=== PATIENT | female | born 1935 | race Caucasian/White ===

== ENCOUNTER 2019-11-07 12:18 | Inpatient (IN) | payer MEDICARE, BC, SELFPAY ==
[2019-11-07] VITALS (8 sets, daily range): BP systolic 147–173; BP diastolic 62–88; PULSE 54–87; RESP 16–20; TEMP 36.2–36.8; O2SAT 87–98; BMI 30.8
--- NOTE | ~2019-11-07 | XR_ITS ---
XR chest 1V portable DATE: 11/07/2019 13:06 INDICATION: Dizziness. Recent cardiac catheterization TECHNIQUE: Portable upright AP chest on 11/07/2019 at 1304 hours COMPARISON: None FINDINGS: Globular enlarged cardiac silhouette suggesting cardiomyopathy or less likely pericardial e ffusion. There is pulmonary vascular congestion and redistribution. There are extensive patchy infilt rates throughout the right lung and to a lesser extent in the left perihilar area, likely due to pulm onary edema. Pneumonia and aspiration are not excluded. Minimal blunting of the right costophrenic angle may indicate slight right pleural effusion. Aortic arch calcification. Diffuse osteopenia. There is osteoarthritic change at the glenohumeral joints, especially severe on t he left as well as degenerative change at the acromioclavicular joints. Dextro scoliosis and degenerative change of the thoracic spine. IMPRESSION: Enlarged cardiac silhouette consistent with cardiomyopathy and/or pericardial effusion Probably vascular congestion and bilateral pulmonary infiltrates, right greater than left, suggesting pulmonary edema. Pneumonia and aspiration are not excluded Reviewed, dictated and finalized at location A. BAKER IMPRESSION: Enlarged cardiac silhouette consistent with cardiomyopathy and/or p ericardial effusion Probably vascular congestion and bilateral pulmonary infiltrates, right greater than left, suggesting pulmonary edema. Pneumonia and aspiration are not exclud ed
--- NOTE | ~2019-11-07 | MR_ITS ---
EXAMINATION: MR brain/brain stem wo con EXAM DATE: 11/08/2019 10:16 INDICATION: Slurred speech. Cardiac catheterization. TECHNIQUE: Magnetic resonance imaging (MRI) of the brain/brain stem obtained without contrast. Sagitt al T1, axial diffusion, gradient echo (T2*), T1, T2, FLAIR sequences obtained. Correlation is made t o head CT same day. FINDINGS: There are no areas of restricted diffusion to suggest acute infarction. There is no acute hemorrhage seen on the T2*, a hemosiderin sensitive sequence. No intraparenchymal brain mass lesion. There is moderate periventricular and subcortical T2/FLAIR signal hyperintensity, nonspecific but pr obably related to small vessel ischemic disease (microangiopathy). There is moderate prominence of the sulci and ventricles related to cerebral atrophy. There are no extra-axial collections. Flow v oids are seen in the cerebral arteries on the T2-weighted sequences consistent with their expected pa tency. Patient has had bilateral ocular lens surgery. Soft tissue is unremarkable. There is right mastoid effusion. IMPRESSION: 1. No acute intracranial findings. 2. Chronic age related findings. Reviewed, dictated and finalized at location A. ERTY MANAGEMENT ACCOUNTANT
--- NOTE | ~2019-11-07 | CT_ITS ---
EXAMINATION: CT brain wo con DATE: 11/07/2019 13:11 INDICATION: Confusion, slurred speech. Cardiac catheterization yesterday. TECHNIQUE: Computed tomography (CT) of the head was performed without intravenous contrast. The mA wa s adjusted according to patient size. Iterative reconstruction technique was employed. Exam dose: 60 5.33 mGy-cm total exam DLP. COMPARISON: None FINDINGS: There is prominent bilateral vertebral artery and carotid siphon and supraclinoid internal carotid artery calcifications. There is nonspecific diminished attenuation of the cerebral white juan er, likely due to chronic small vessel ischemic changes. No intracranial mass lesion or hemorrhage, midline shift or mass effect or recent cerebrovascular acc ident is evident. CT is not sensitive for detection of hyperacute CVA. There are bilateral basal ganglia calcifications. There is moderate cerebral and cerebellar volume loss consistent with age. No orbital mass lesion is evident. The mastoid air cells and included paranasal sinuses are unremarkable. No fracture or bone destructio n of the cranial vault. IMPRESSION: Cerebral atherosclerosis and chronic small vessel ischemic changes of the cerebral white matter Reviewed, dictated and finalized at Location A. Reviewed, dictated and finalized at location A. ENTION PLANNER
--- NOTE | ~2019-11-07 | US_ITS ---
EXAMINATION: US carotid duplex BI EXAM DATE: 11/09/2019 11:11 INDICATION: Slurred speech. Transient ischemic attack. TECHNIQUE: Grayscale, color and pulsed Doppler images of the cervical carotid arteries were obtained . The degree of vessel stenosis is placed in one of the following categories: normal, <50% stenosis, 50-69% stenosis, >=70% stenosis but less than near-occlusion, near-occlusion, or occlusion. Note that percent stenosis relative to normal distal artery lumen diameter is indirectly measured from velocit y measurements as described by Fredy, et al. Radiology 2003; 229:340-346. There is no prior study fo r comparison. FINDINGS: RIGHT SIDE: Right common carotid artery peak systolic velocity (PSV in cm/s): 92 Right bulb/internal carotid artery peak systolic velocity (PSV in cm/s): 83 Right internal carotid artery end diastolic velocity (EDV in cm/s): 19 Right ICA/CCA peak systolic ratio: 0.9 Right external carotid artery peak systolic velocity (PSV in cm/s): 1.0 Right vertebral artery antegrade flow: yes There is minimal carotid bulb plaque. Velocity and Doppler waveforms in the common and internal carotid arteries is normal. LEFT SIDE: Left common carotid artery peak systolic velocity (PSV in cm/s): 88 Left bulb/internal carotid artery peak systolic velocity (PSV in cm/s): 75 Left internal carotid artery end diastolic velocity (EDV in cm/s): 27 Left ICA/CCA peak systolic ratio: 0.9 Left external carotid artery peak systolic velocity (PSV in cm/s): 1.5 Left vertebral artery antegrade flow: yes There is minimal common carotid artery plaque. Velocity and Doppler waveforms in the common and internal carotid arteries is normal. IMPRESSION: 1. Less than 50 percent stenosis in the right internal carotid artery. 2. Less than 50 percent stenosis in the left internal carotid artery. Reviewed, dictated and finalized at location B. ONAL SECURITY SPECIALIST
--- NOTE | 2019-11-07 12:31 | ED.NEUROSD ---
HPI - Neuro Symptoms/Deficit General Chief Complaint: Neuro Symptoms/Deficit Stated Complaint: confusion/slurred speech after heart cath Time Seen by Provider: 11/07/19 12:25 Source: patient and family (Daughter) Mode of arrival: ambulatory Limitations: no limitations History of Present Illness HPI Narrative: The pt is an 83 y/o female who presents to the ED c/o neurological deficits onset today. Pt states that she had a cardiac catheterization one day ago at [facility]. She states that purpose of the catheterization was to study pressures in the heart. Pt's daughter notes that the pt has a PMHx of Afib, pulmonary HTN, and aortic regurgitation. She states that today, when she awoke, she was talking about her son and family being at her house despite them not actually being there. Her daughter states that the pt seemed to be confused when she went to the pt's house as well. She also states that the pt's speech was off. Pt reports dry mouth and dizziness when going from sitting to standing, but denies CP and weakness. Pt's daughter states that she previously fractured a wrist. Pt is on Eliquis. Location: speech (Speech was off per pt's daughter) and altered Context: other (Cardiac catheterization one day ago) On Anticoagulants: Yes Associated symptoms: other (Dizziness when going from sitting to standing, dry mouth) Related Data Home Medications Medication Instructions Recorded Confirmed Calcium 500 + D 11/07/19 acetaminophen 11/07/19 amlodipine 11/07/19 apixaban [Eliquis] mg 11/07/19 colesevelam mg 11/07/19 digoxin 11/07/19 furosemide 11/07/19 letrozole mg 11/07/19 lisinopril 11/07/19 loperamide [Anti-Diarrheal 11/07/19 (loperamide)] metformin mg PO 11/07/19 pantoprazole PO 11/07/19 rosuvastatin mg 11/07/19 sitagliptin [Januvia] mg 11/07/19 sotalol 11/07/19 Allergies Allergy/AdvReac Type Severity Reaction Status Date / Time monosodium glutamate AdvReac Diarrhea Verified 11/07/19 17:46 Review of Systems Review of Systems: All systems reviewed & are unremarkable except as noted in HPI and below ENT: Reports dry mouth Cardiovascular: Cardiovascular: Denies chest pain Neurologic: Reports Abnormal speech present (Speech was off per pt's daughter), Reports confusion, Reports dizziness (When going from sitting to standing) and Denies weakness PMFSH Past Medical History Medical History (Updated 11/07/19 @ 19:29 by Isrrael Willson MD) Afib Aortic regurgitation CAD (coronary artery disease) Diabetes HLD (hyperlipidemia) HTN (hypertension) Pulmonary HTN Wrist fracture Surgical History Surgical History (Updated 11/07/19 @ 12:37 by Martínez Roman) H/O cardiac catheterization Family History Family History (Updated 11/07/19 @ 18:55 by Melina Iyer, GILMAR) Mother Cancer Father Diabetes mellitus Sibling Diabetes mellitus Social History Social History (Updated 11/07/19 @ 12:38 by Martínez Roman) Smoking status: Never smoker Alcohol intake: never Substance use: never Gender identity (if verbalized by the patient): Female Spiritual care concerns: No Agree to blood products: Yes Exam Narrative: Exam Narrative: GENERAL: Chronically ill-appearing, well-nourished, and in no acute distress. HEAD: Normocephalic, atraumatic. ENT: Mucous membranes moist. No pharyngeal erythema or tonsillar exudate. NECK: Supple. Wound dressing right neck from heart cath. CHEST: Diminished lung sounds on the right side with basilar crackles. No respiratory distress. HEART: Bradycardic and irregular regular. Normal peripheral pulses. ABDOMEN: Soft, nontender, nondistended. EXTREMITIES: Normal range of motion. Nonpitting lower extremity edema. SKIN: Warm, dry, no rash. NEURO: No focal deficits. No upper or lower extremity drift. Cranial nerves II through XII intact. Clear speech. Alert and oriented x3. Course Consultations Consultation #1: Discussed case with
--- NOTE | 2019-11-07 12:55 | ECG_ITS ---
Measurements Intervals [place] Rate: 56 P: IA: 0 QRS: 144 QRSD: 144 T: -29 QT: 462 QTc: 447 Interpretive Statements ATRIAL FIBRILLATION WITH SLOW VENTRICULAR RESPONSE RIGHT AXIS DEVIATION RIGHT BUNDLE BRANCH BLOCK MINIMAL ST ELEVATION IN HIGH LATERAL LEADS ST-T WAVE ABNORMALITY ANTEROLAT/INF LEADS- CONSIDER ISCHEMIA ABNORMAL ECG Electronically Signed On 11-07-2019 17:53:59 BULL DRIVER by Jeancarlos Omer D.O.
[2019-11-07 13:06] LABS: Basophils Percent Auto 0.3 % (0.2-1.2); Eosinophils Percent Auto 0.1 % (0-4.4); Hematocrit 29.6 % (37.0-47.0); Hemoglobin 8.2 g/dL (12.0-15.0); Immature Granulocyte Absolute 0.07 K/mm3 (0.00-0.031); Immature Granulocyte Percent A 0.5 % (0-0.5); Lymphocytes Percent Auto 5.9 % (18.3-44.2); Mean Corpuscular HGB Conc 27.7 g/dl (32-36); Mean Corpuscular Hemoglobin 21.9 pg (26-34); Mean Corpuscular Volume 78.9 fl (80-100); Mean Platelet Volume 11.1 fl (7.4-10.4); Monocytes Absolute Auto 0.8 K/mm3 (0.1-0.6); Monocytes Percent Auto 5.3 % (2.6-8.5); Neutrophils Absolute Auto 13.4 K/mm3 (1.3-6.7); Neutrophils Percent Auto 87.9 % (45.5-73.1); Platelet Count Result 227 k/mm3 (150-375); Red Blood Count 3.75 M/mm3 (4.2-5.4); Red Cell Distribution Width 21.5 % (11.5-14.5); White Blood Count 15.2 K/mm3 (4.5-10.0)
[2019-11-07 13:18] LABS: INR 1.2; Prothrombin Time 14.9 Seconds (11.1-14.7)
[2019-11-07 13:19] LABS: Blood Urea Nitrogen 22 mg/dL (7-17); Carbon Dioxide 28 mmol/L (22-30); Chloride 100 mmol/L (98-107); Estimated Glomerular Filt Rate > 60; Glucose 185 mg/dL (65-105); Partial Thromboplastin Time 39.4 SECONDS (22.3-36.8); Potassium 3.6 mmol/L (3.4-5.0); Sodium 136 mmol/L (137-145)
[2019-11-07 13:21] LABS: Hypochromasia 1+ (NORMAL); Ovalocytes 1+ (NORMAL); Platelet Estimate Adequate (Adequate); Stomatocytes 2+ (NORMAL)
[2019-11-07 13:30] LABS: Troponin I < 0.012 ng/mL (0.000-0.034)
[2019-11-07 16:02] LABS: Add Urine Microscopic? YES; Appearance Urine Clear (Clear); Bacteria Urine Trace /hpf; Bilirubin Urine Negative (Negative); Blood Urine Negative (Negative); Color Urine Yellow (Yellow); Glucose Urine UA 1+ mg/dL (Negative); Ketones Urine Negative (Negative); Leukocyte Esterase Ur Negative LEU/UL (Negative); Mucus Urine Rare /lpf; Nitrate Urine Negative (Negative); Protein Urine 1+ mg/dL (Negative); Specific Grav Ur 1.012 (1.001-1.035); Squamous Epithelial Cell Urine Few /hpf (Few); Urobilinogen Urine Negative mg/dL (<2.0); WBC Urine 0-3 /hpf
[2019-11-07 17:48] LABS: NT Pro B Type Natriuretic Pept 3330 PG/ML (5-100)
--- NOTE | 2019-11-07 18:47 | ADMGEN ---
This patient, Milagro Mohr, was admitted to Medical Room 341-01. Patient/family oriented to hospital policies and general routines including ID bracelet, bed and alarms, visiting hours, pain management, procedures, bathroom and other care routines, personal items, smoking policy, room service/diet, and visiting hours. Valuables list has been completed. Information on how to activate the Rapid Response Team has been discussed. Patient/Family are encouraged to report perceived risks to care and to ask questions if they do not understand what they are told or what they should do.
[2019-11-07] MEDS: ACETAMINOPHEN 325 MG TABLET 650 MG PO (19:56)
[2019-11-08] VITALS (15 sets, daily range): BP systolic 122–149; BP diastolic 42–63; PULSE 48–87; RESP 14–18; TEMP 36.6–37.2; O2SAT 91–97
[2019-11-08] MEDS: ACETAMINOPHEN 325 MG TABLET 650 MG PO (01:42)
--- NOTE | 2019-11-08 05:13 | PM.IMHP ---
H&P: HPI History of Present Illness Chief complaint: Confusion/slurred speech Narrative: Date and time of patient contact: 11/08/2019 at 4:50 a.m. Milagro Mohr is a 83 year old female with a past medical history of chronic hypoxic respiratory failure due to pulmonary hypertension, chronic atrial fibrillation, aortic regurgitation, and type 2 diabetes mellitus who presented to the ER from home due to confusion and slurred speech. The patient had an outpatient right-sided cardiac catheterization on 11/06/2019 to evaluate her pulmonary hypertension. Evidently when the patient woke up on the she was talking about her son and family being at her house despite them not actually being there. When her daughter went to the patient's house to check on her she felt her mom was confused. She felt that her mom speech was off. The patient reported a dry mouth and dizziness when changing positions to the ER staff. She denied any cough or congestion. She has not been having any chest pain or weakness. The patient reports she usually has bowel movement every day. She denies any fevers or chills. She has not been having any nausea or vomiting and reports a normal appetite. Patient's support services coordinator is Dr. Alicia Pelayo at [facility] Review of systems was somewhat limited as the patient would only answer questions in 1-2 word responses. Review of Systems Review of Systems: Narrative: Except as documented in the HPI, all other systems were reviewed and are negative. [facility] Past Medical History Medical History (Updated 11/08/19 @ 05:32 by Sherri Cui DO) Aortic regurgitation Atrial fibrillation CAD (coronary artery disease) Chronic anemia Chronic respiratory failure with hypoxia, on home O2 therapy Diabetes HLD (hyperlipidemia) HTN (hypertension) Pulmonary HTN Wrist fracture Surgical History Surgical History (Updated 11/08/19 @ 05:10 by Sherri Cui DO) History of right heart catheterization For evaluation of pulmonary hypertension November 06, 2019 Family History Family History (Updated 11/07/19 @ 18:55 by Melina Iyer RN) Mother Cancer Father Diabetes mellitus Sibling Diabetes mellitus Social History Social History (Updated 11/08/19 @ 05:22 by Sherri Cui DO) Social History: The patient is and lives in her own home. She is a lifelong nonsmoker. She denies any significant alcohol use or illicit substance use. She is a retired administrative and program specialist. Code status: Full code per EMR Smoking status: Never smoker Alcohol intake: never Substance use: never Gender identity (if verbalized by the patient): Female Spiritual care concerns: No Agree to blood products: Yes Meds Home Medications and Allergies Home Medications Medication Instructions Recorded Confirmed Type Calcium 500 + D 500 mg PO DAILY 11/07/19 11/07/19 History acetaminophen 1,000 mg PO TID 11/07/19 11/07/19 History amlodipine 5 mg PO DAILY 11/07/19 11/07/19 History apixaban [Eliquis] 5 mg PO BID 11/07/19 11/07/19 History colesevelam 1,875 mg PO DAILY 11/07/19 11/07/19 History digoxin 250 mcg PO DAILY 11/07/19 11/07/19 History furosemide 40 mg PO DAILY 11/07/19 11/07/19 History gabapentin 600 mg PO HS 11/07/19 11/07/19 History letrozole 2.5 mg PO DAILY 11/07/19 11/07/19 History lisinopril 40 mg PO BID 11/07/19 11/07/19 History loperamide [Anti-Diarrheal 2 mg PO PRN 11/07/19 11/07/19 History (loperamide)] metformin 1,000 mg PO BID 11/07/19 11/07/19 History pantoprazole 40 mg PO BID 11/07/19 11/07/19 History rosuvastatin 5 mg PO QMWF 11/07/19 11/07/19 History sitagliptin [Januvia] 100 mg PO HS 11/07/19 11/07/19 History sotalol 120 mg PO BID 11/07/19 11/07/19 History Allergies Allergy/AdvReac Type Severity Reaction Status Date / Time monosodium glutamate AdvReac Diarrhea Verified 11/07/19 17:46 Vital Signs Vital Signs - 24 hr 11/07/19 12:28 11/07/19 14:55 11/07/19 1
[2019-11-08] MEDS: metroNIDAZOLE 500 MG/ISO 100ML 500 MG/100 ML BAG 100 MG IVPB ×4 (05:37→23:36)
[2019-11-08 06:09] LABS: Basophils Percent Auto 0.2 % (0.2-1.2); Eosinophils Absolute Auto 0.2 K/mm3 (0-0.3); Eosinophils Percent Auto 2.1 % (0-4.4); Hematocrit 26.9 % (37.0-47.0); Hemoglobin 7.3 g/dL (12.0-15.0); Immature Granulocyte Absolute 0.04 K/mm3 (0.00-0.031); Immature Granulocyte Percent A 0.5 % (0-0.5); Lymphocytes Absolute Auto 1.04 K/mm3 (0.9-3.2); Lymphocytes Percent Auto 12.2 % (18.3-44.2); Mean Corpuscular HGB Conc 27.1 g/dl (32-36); Mean Corpuscular Hemoglobin 21.7 pg (26-34); Mean Corpuscular Volume 79.8 fl (80-100); Mean Platelet Volume 11.8 fl (7.4-10.4); Monocytes Absolute Auto 0.7 K/mm3 (0.1-0.6); Monocytes Percent Auto 7.7 % (2.6-8.5); Neutrophils Absolute Auto 6.6 K/mm3 (1.3-6.7); Neutrophils Percent Auto 77.3 % (45.5-73.1); Platelet Count Result 170 k/mm3 (150-375); Red Blood Count 3.37 M/mm3 (4.2-5.4); Red Cell Distribution Width 21.7 % (11.5-14.5); White Blood Count 8.5 K/mm3 (4.5-10.0)
[2019-11-08 06:32] LABS: Blood Urea Nitrogen 19 mg/dL (7-17); Calcium 8.6 mg/dL (8.4-10.2); Carbon Dioxide 29 mmol/L (22-30); Chloride 98 mmol/L (98-107); Estimated CRCL calculation 64 ml/min; Estimated Glomerular Filt Rate > 60; Glucose 132 mg/dL (65-105); Magnesium 1.8 mg/dL (1.6-2.3); Potassium 3.5 mmol/L (3.4-5.0); Sodium 134 mmol/L (137-145)
[2019-11-08 07:18] LABS: Hypochromasia 1+ (NORMAL); Ovalocytes 1+ (NORMAL); Platelet Estimate Adequate (Adequate); Poikilocytosis 1+ (NORMAL)
[2019-11-08 08:58] LABS: Troponin I 0.015 ng/mL (0.000-0.034)
[2019-11-08] MEDS: APIXABAN 5 MG TABLET PO ×2 (09:13→17:01)
[2019-11-08] MEDS: SOTALOL HCL 40 MG TABLET 120 MG PO ×2 (09:14→16:58)
[2019-11-08] MEDS: COLESEVELAM 625 MG TABLET 1875 MG PO (09:14)
[2019-11-08] MEDS: LETROZOLE (*CHEMO) 2.5 MG TABLET PO (09:15)
[2019-11-08] MEDS: lisinopriL 20 MG TABLET 40 MG PO ×2 (09:15→17:00)
[2019-11-08] MEDS: DIGOXIN 250 MCG TABLET PO (09:15)
[2019-11-08] MEDS: metFORMIN HCL XR 500 MG TAB.SR.24H 1000 MG PO ×2 (09:16→17:00)
[2019-11-08] MEDS: AMLODIPINE BESYLATE 5 MG TABLET PO (09:16)
[2019-11-08] MEDS: PANTOPRAZOLE 40 MG TABLET PO ×2 (09:16→16:59)
[2019-11-08] MEDS: ACETAMINOPHEN 500 MG TABLET 1000 MG PO (09:42)
[2019-11-08] MEDS: FUROSEMIDE 40 MG TABLET PO (10:31)
--- NOTE | 2019-11-08 13:26 | PM.IMPN ---
Progress Note: A&P Assessment and Plan (1) Slurred speech: Code(s): R47.81 - Slurred speech Status: Acute Assessment and Plan: -----patient had a brief episode of confusion was slurred speech that occurred the night after her procedure. The patient is back to baseline at this time. I am concerned for a TIA at this point since she had to hold her Eliquis prior to the procedure. Is now back on the Eliquis. MRI is pending but the patient has no neurological deficits or any recurring symptoms so it is likely just a TIA. Will know for sure once the MRI is read. Likely discharge tomorrow if not having any recurring symptoms. (2) Aspiration pneumonia: Qualifiers: Aspiration pneumonia type: unspecified Laterality: right Lung location: unspecified part of lung Qualified Code(s): J69.0 - Pneumonitis due to inhalation of food and vomit Code(s): J69.0 - Pneumonitis due to inhalation of food and vomit Status: Acute Assessment and Plan: ------continue treatment for aspiration pneumonia although CHF should be in the differential. Continue Rocephin and Flagyl. (3) Delirium: Code(s): R41.0 - Disorientation, unspecified Status: Acute Assessment and Plan: -----see above (4) Atrial fibrillation: Code(s): I48.91 - Unspecified atrial fibrillation Status: Acute Assessment and Plan: ------Will continue patient's home sotalol, digoxin, Eliquis (5) Chronic respiratory failure with hypoxia, on home O2 therapy: Code(s): J96.11 - Chronic respiratory failure with hypoxia; Z99.81 - Dependence on supplemental oxygen Status: Acute Assessment and Plan: ------Continue home O2. The patient has not had any increased oxygen requirement. (6) Iron deficiency anemia: Code(s): D50.9 - Iron deficiency anemia, unspecified Status: Acute Assessment and Plan: -----patient has known iron deficiency anemia and this was to follow-up with the GI doctor on Saturday to talk about colonoscopy. The patient is on Eliquis. She gets Venofer IV outpatient and is due to get 1 tomorrow. Will give her 1 dose here. Time Spent With Patient Time with patient: 25 - 35 minutes Subjective Date/time seen: 11/08/19 13:26 Interval history: Pt is a 83 y/o female here for confusion. I spoke with the patient and daughter at bedside. She has not had any issues since the current confusion. The patient does not remember seeing the adjuster and inspector overnight but thinks she may have been sleeping she said. She has no numbness or tingling to any parts of her body. The daughter thinks that the pts speech is still slurred but pt does not believe so. She has not had any asymmetrical features. Pt states that her last echo was 06/2019 and knows she has CHF and says my supervisor cigar processing wasn't happy with the results . She says her legs have been swollen. She was able to pull up an EKG from [facility] which did show the inverted t waves on lateral leads. She also gets iron infusions and is due for one tomorrow. She has iron deficiency anemia that she is seeing a GI doctor for. She said that she had a cardiac catheterization but received absolutely no sedation or even conscious sedation during this. She was not confused after the procedure. She says the night of the procedure she woke up in a coughing fit and felt like she could not breathe. She has not had any shortness of breath or issues since. Review of Systems Review of Systems: All systems reviewed & are unremarkable except as noted in HPI and below Exam Narrative: Exam Narrative: General: Well developed well nourished patient resting comfortably in the chair in NAD HEENT: normocephalic Neck: supple Neuro: Alert and oriented x4. Cranial nerves 2-12 intact. Equal strength the upper lower extremities 5/5. Able to do rapid alternating movements and [id number] with both hands. CV:RRR. Resp: Clear breath sounds t
[2019-11-08] MEDS: GABAPENTIN 300 MG CAPSULE 600 MG PO (20:00)
[2019-11-09] VITALS (7 sets, daily range): BP systolic 132; BP diastolic 48; PULSE 56–74; RESP 18; TEMP 36.7; O2SAT 93–95
[2019-11-09] MEDS: metroNIDAZOLE 500 MG/ISO 100ML 500 MG/100 ML BAG 100 MG IVPB (05:08)
[2019-11-09 05:43] LABS: Hematocrit 27.5 % (37.0-47.0); Hemoglobin 7.6 g/dL (12.0-15.0); Mean Corpuscular HGB Conc 27.6 g/dl (32-36); Mean Corpuscular Volume 79.7 fl (80-100); Platelet Count Result 188 k/mm3 (150-375); Red Blood Count 3.45 M/mm3 (4.2-5.4); Red Cell Distribution Width 21.6 % (11.5-14.5); White Blood Count 7.4 K/mm3 (4.5-10.0)
[2019-11-09] MEDS: SOTALOL HCL 40 MG TABLET 120 MG PO (08:11)
[2019-11-09] MEDS: metFORMIN HCL XR 500 MG TAB.SR.24H 1000 MG PO (08:11)
[2019-11-09] MEDS: PANTOPRAZOLE 40 MG TABLET PO (08:11)
[2019-11-09] MEDS: APIXABAN 5 MG TABLET PO (08:11)
[2019-11-09] MEDS: DIGOXIN 250 MCG TABLET PO (08:11)
[2019-11-09] MEDS: COLESEVELAM 625 MG TABLET 1875 MG PO (08:11)
[2019-11-09] MEDS: lisinopriL 20 MG TABLET 40 MG PO (08:11)
[2019-11-09] MEDS: AMLODIPINE BESYLATE 5 MG TABLET PO (08:12)
[2019-11-09] MEDS: LETROZOLE (*CHEMO) 2.5 MG TABLET PO (08:12)
[2019-11-09] MEDS: FUROSEMIDE 40 MG TABLET PO (08:12)
--- NOTE | 2019-11-09 09:57 | PM.DS ---
DS: Diagnosis Admitting Diagnosis Admitting Diagnosis: Pneumonitis due to inhalation of food and vomit Discharge Diagnosis (1) Slurred speech: Code(s): R47.81 - Slurred speech Status: Acute Assessment and Plan: -----patient had a brief episode of confusion was slurred speech that occurred the night after her procedure. The patient is back to baseline at this time and has not had any recurrence. I suspect this was a TIA since she was off her anticoagulation for her procedure. MRI of the brain is negative for acute stroke. She is back on Eliquis now. (2) Aspiration pneumonia: Qualifiers: Aspiration pneumonia type: unspecified Laterality: right Lung location: unspecified part of lung Qualified Code(s): J69.0 - Pneumonitis due to inhalation of food and vomit Code(s): J69.0 - Pneumonitis due to inhalation of food and vomit Status: Acute Assessment and Plan: ------continue treatment for aspiration pneumonia although CHF should be in the differential. (3) Delirium: Code(s): R41.0 - Disorientation, unspecified Status: Acute Assessment and Plan: -----see above (4) Atrial fibrillation: Code(s): I48.91 - Unspecified atrial fibrillation Status: Acute Assessment and Plan: ------Will continue patient's home sotalol, digoxin, Eliquis (5) Chronic respiratory failure with hypoxia, on home O2 therapy: Code(s): J96.11 - Chronic respiratory failure with hypoxia; Z99.81 - Dependence on supplemental oxygen Status: Acute Assessment and Plan: ------Continue home O2. The patient has not had any increased oxygen requirement. (6) Iron deficiency anemia: Code(s): D50.9 - Iron deficiency anemia, unspecified Status: Acute Assessment and Plan: -----patient has known iron deficiency anemia and this was to follow-up with the GI doctor on Saturday to talk about colonoscopy. The patient is on Eliquis. She gets Venofer IV outpatient and is due to get 1 tomorrow. 1 dose was given here DS: Summary Hospital Course Reason for hospitalization: Acute confusion Hospital Course: Patient is an 84-year-old female who presented emergency room for confusion after her cardiac catheterization. Were stable in the arc soft blood pressure which was a little high 165/62. White blood cell count 15.2, hemoglobin 8.2, hematocrit 29.6, platelets 227. Sodium 136, potassium 3.6, chloride 100, carbon dioxide 28, BUN 22, creatinine 0.6, glucose 185. Initial head CT showed no acute changes. Chest x-ray showed enlarged cardiac silhouette consistent with cardiomegaly and/or pericardial effusion with probable vascular congestion and bilateral pulmonary infiltrates suggested for pulmonary edema pneumonia could not be excluded. Patient was admitted to the hospitalist service and started on treatment for pneumonia. The patient had some of her records in the room which showed that she had systolic heart failure and she is in frequent contact with her biological technical officer about improving this. This, obviously, did not cause her confusion. Says she had absolutely no sedation during her catheterization so I do not suspect aspiration pneumonia at this time. Since she was off her Eliquis and she has known AFib, I suspect she had a TIA. Her MRI of the brain was normal. She had normal mentation the day of discharge and had no recurrence of confusion while she was hospitalized. She had some EKG changes which was reviewed with her biological technical officer by the ER who said that that is chronic for her. I also saw her records in the room which confirmed this. The patient also has iron deficiency anemia and requires Venofer IV infusions. Because she is on anticoagulation I strongly suggested that she see her GI doctor to obtain a colonoscopy although she did not see this as a priority at this time. I did give her a GI referral and spoke to her daughter about the s
--- NOTE | 2019-11-13 11:13 | PC.NURSE ---
Blood cx is negative. Marion Anthony PA-C aware
== END 2019-11-09 12:10 | disposition home or self-care (01) | DRG 69 ==
LOC: ANHED 17:49 → ANH3MED 17:54
PROVIDERS: Internal Medicine; Admitting Provider Internal Medicine; Emergency Provider Emergency Medicine; Visit Provider Physician Assistant
DX: G45.9 Transient cerebral ischemic attack, unspecified (principal); G93.41 Metabolic encephalopathy; I48.20 Chronic atrial fibrillation, unspecified; J96.11 Chronic respiratory failure with hypoxia; I50.22 Chronic systolic (congestive) heart failure; I11.0 Hypertensive heart disease with heart failure; I27.20 Pulmonary hypertension, unspecified; I35.1 Nonrheumatic aortic (valve) insufficiency; I25.10 Atherosclerotic heart disease of native coronary artery without angina pectoris; E78.5 Hyperlipidemia, unspecified; E11.9 Type 2 diabetes mellitus without complications; D50.9 Iron deficiency anemia, unspecified; Z99.81 Dependence on supplemental oxygen; Z79.01 Long term (current) use of anticoagulants
CPT/HCPCS: 36415; 70450; 70551; 71045; 80048; 81001; 83735; 83880; 84484; 85025; 85027; 85610; 85730; 87040; 93005; 93880; 96365; 96375; 99285; A9270; J0456; J0696; J1756

== ENCOUNTER → 2023-07-03 08:52 | Outpatient (CLI) | payer MEDICARE, BC, SELFPAY ==
--- NOTE | ~2023-07-03 | MR_ITS ---
MRI of the left shoulder Technique: Axial proton-density fat-sat images, coronal proton density fat-sat and T2 fat-sat images, and sagittal T1-weighted and T2 fat-sat images were acquired. Clinical History: Pain Findings: There is severe AC joint degenerative change with extremely large subacromial spur present. Coracoclavicular, coracoacromial, and coracohumeral ligaments are probably intact. There is full-thickness tear involving the entire supraspinatus tendon as well as the anterior portio n of the infraspinatus tendon. Posterior infraspinatus tendon fibers appear to remain intact. Fluid-f illed gap measures approximately 3.5 x 3.1 cm in extent. Subscapularis tendon is probably intact, with moderate to advanced tendinosis. Tendon of long head of the biceps is probably intact, with severe intra-articular tendinosis. There is severe glenohumeral joint osteoarthritis. Large inferomedial humeral head osteophyte is pres ent with remodeling the glenoid and diffuse grade IV chondromalacia. There is additional large osteop hyte at the posterior aspect of the humeral head. There is subchondral cystic change in the humeral h ead. There is probably diffuse, circumferential degenerative labral tearing, relatively sparing the client strategist ior labrum. There is fluid distention of the subacromial/subdeltoid bursa related to the underlying rotator cuff tear. Inferior glenohumeral ligament is intact. There is probable mild atrophy of the supraspinatus a nd infraspinatus muscle bellies. 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 Probable mild atrophy of the supraspinatus and infraspinatus muscle bellies. Severe glenohumeral joint osteoarthritis, as detailed above. Extensive degenerative labral tearing, relatively sparing the posterior labrum. Severe AC joint degenerative change. Reviewed, dictated and finalized at location . 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 Probable mild atrophy of the supraspinatus and infraspinatus muscle bellies. Severe glenohumeral joint osteoarthritis, as detailed above. Extensive degenerative labral tearing, relatively sparing the posterior labrum. Severe AC joint degenerative change.
== END ==
PROVIDERS: PCP Physician Assistant; Visit Provider Physician Assistant
DX: M19.012 Primary osteoarthritis, left shoulder (principal); M75.122 Complete rotator cuff tear or rupture of left shoulder, not specified as traumatic
CPT/HCPCS: 73221

== ENCOUNTER 2024-07-28 07:57 | Emergency (ER) | payer MEDICARE, BC, SELFPAY ==
[2024-07-28] VITALS (7 sets, daily range): BP systolic 112–139; BP diastolic 60–82; PULSE 82–106; RESP 12–19; TEMP 36.4–37.1; O2SAT 93–98
--- NOTE | ~2024-07-28 | CT_ITS ---
CT brain wo con Ordering provider: Jose Luis De Leon MD History: 88 years Female with . fall . Comparison: November 07, 2019 Technique: CT of the head without contrast. Radiation reduction technique utilized.The dose-length product was 681 mGy-cm. FINDINGS: BRAIN PARENCHYMA AND CSF SPACES: Mild leukoaraiosis and diffuse cortical atrophy. Mild atheromatous d isease. No midline shift, mass effect or hemorrhage. The brain parenchyma and CSF spaces are otherwi se normal. VISUALIZED PARANASAL SINUSES: Well aerated. MASTOIDS: Well aerated. BONES: The bones appear intact. SOFT TISSUES: Visualized nasopharynx is normal. Scalp hematoma in the frontal scalp otherwise, Super ficial soft tissues are normal. IMPRESSION: No acute intracranial findings. Reviewed, dictated and finalized at location A.
--- NOTE | ~2024-07-28 | XR_ITS ---
Left Shoulder Technique: AP and scapular Y views were obtained. Clinical History: Pain Findings: No fracture or dislocation is seen. Osseous alignment is anatomic. The glenohumeral and acr omioclavicular joints demonstrate advanced degenerative change. Soft tissues are unremarkable. Impression: Advanced degenerative change of the glenohumeral and AC joints. Reviewed, dictated and finalized at location . Impression: Advanced degenerative change of the glenohumeral and AC joints.
--- NOTE | ~2024-07-28 | XR_ITS ---
XR ribs LT 2V w CXR 2V Ordering provider: Jose Luis De Leon MD History: . Fall PAIN TO MID ANTERIOR AND LATERAL RIBS . Comparison: None. FINDINGS: BONES: No acute rib fracture. MEDIASTINUM: The cardiac silhouette is slightly enlarged. Congestive vonnie. LUNGS: No effusions or pneumothorax. Minimal opacification the left lung base which may indicate atel ectasis. OTHER: No free air under the diaphragm. Bilateral shoulder osteoarthritic changes. Dextroscoliosis wi th degenerative spine. IMPRESSION: 1. No acute osseous abnormality left ribs and chest. (Note: subtle/nondisplaced rib fractures can be occult on plain films and if there is continued clinical suspicion for rib fracture, recommend fol low up CT chest.) 2. Prominent markings in the left lung base which may indicate atelectatic changes. Pneumonia also c annot be excluded. Clinical correlation advised. Reviewed, dictated and finalized at location A. IMPRESSION: 1. No acute osseous abnormality left ribs and chest. (Note: subtle/nondispla janessa rib fractures can be occult on plain films and if there is continued clinic al suspicion for rib fracture, recommend follow up CT chest.) 2. Prominent markings in the left lung base which may indicate atelectatic liane nges. Pneumonia also cannot be excluded. Clinical correlation advised.
--- NOTE | ~2024-07-28 | CT_ITS ---
CT facial & cervical spine wo Ordering provider: Jose Luis De Leon MD History: . fall . Comparison: None. Technique: Thin slice axial CT of the facial bones was performed without contrast. Coronal and sagit shelley reformatted images were also obtained. . Automated exposure control and iterative reconstruction technique were employed. The dose-length product was 280.31 mGy-cm. FINDINGS: PARANASAL SINUSES: Well aerated. BONES: No facial fracture including no nasal bone fracture. Hyperostosis frontalis interna is noted. ORBITS AND SUPERFICIAL SOFT TISSUES: The optic globes and orbits are normal.. Hematoma is seen in the frontal scalp. Otherwise, The superficial soft tissues are normal. VISUALIZED MASTOIDS: Well aerated. LIMITED VISUALIZED BRAIN PARENCHYMA: Normal. IMPRESSION: No facial fracture. CT facial & cervical spine wo Ordering provider: Jose Luis De Leon MD History: . fall . Comparison: December 25, 2012 Technique: CT of the cervical spine was performed without contrast. Sagittal and coronal reformatted images were also obtained and reviewed. Automated exposure control and iterative reconstruction jose m hnique were employed. The dose-length product was 280.31 mGy-cm. FINDINGS: VERTEBRAE: No subluxation or acute fracture. The occipital condyles are intact. DISC SPACES: Narrowing of the disc C2-C3 Multilevel Facet joint disease. PARASPINOUS SOFT TISSUES: Normal. IMPRESSION: No acute osseous abnormality cervical spine. Reviewed, dictated and finalized at location A. IMPRESSION: No facial fracture. CT facial & cervical spine wo Ordering provider: Jose Luis De Leon MD History: . fall . Comparison: December 25, 2012 Technique: CT of the cervical spine was performed without contrast. Sagittal a nd coronal reformatted images were also obtained and reviewed. Automated expos ure control and iterative reconstruction technique were employed. The dose-mercedes th product was 280.31 mGy-cm. FINDINGS: VERTEBRAE: No subluxation or acute fracture. The occipital condyles are intact. DISC SPACES: Narrowing of the disc C2-C3 Multilevel Facet joint disease. PARASPINOUS SOFT TISSUES: Normal.
[2024-07-28] MEDS: ONDANSETRON INJ 4 MG/2 ML VIAL IV PUSH (08:23)
[2024-07-28] MEDS: MORPHINE SULFATE (*CRX) 2 MG/ML INJ IV PUSH (08:24)
--- NOTE | 2024-07-28 10:08 | PC.NURSE ---
C-Collar removed per MD
--- NOTE | 2024-07-28 12:17 | ED.FALL ---
HPI - Fall General Chief Complaint: Fall Stated Complaint: glf Time Seen by Provider: 07/28/24 08:05 Source: patient Mode of arrival: EMS Limitations: no limitations History of Present Illness HPI Narrative: 88-year-old with a history of COPD, breast CA, AF status post Watchman procedure here with complaints of fall. Patient states that she was walking to go to use the restroom tripped on a shoe shoes and fell face forward. She complains of head and neck pain and left shoulder pain. She denies any loss of consciousness. MD complaint: fall Fall from: standing Fall witnessed: no Place fall occurred: home Loss of consciousness: none Prolonged down time: no Symptoms prior to fall: none Context: tripped/slipped Location of injury: head and face Quality: dull Associated symptoms (after fall): denies Related Data Home Medications Medication Instructions Recorded Confirmed Calcium 500 + D 500 mg PO DAILY 11/07/19 12/17/23 furosemide 40 mg tablet 80 mg PO DAILY 11/07/19 12/17/23 gabapentin 600 mg tablet 600 mg PO HS 11/07/19 12/17/23 loperamide 2 mg capsule 2 mg PO PRN PRN Diarrhea 11/07/19 12/17/23 (Anti-Diarrheal (loperamide)) metformin 1,000 mg tablet,extended 500 mg PO BID 11/07/19 12/17/23 release 24hr (osmotic) pantoprazole 40 mg tablet,delayed 40 mg PO BID 11/07/19 12/17/23 release sitagliptin phosphate 100 mg 100 mg PO HS 11/07/19 12/17/23 tablet (Januvia) albuterol 90 mcg-budesonide 80 2 inh inhalation TID 12/17/23 12/17/23 mcg/actuation HFA aerosol inhaler (Airsupra) aspirin 81 mg tablet 81 mg PO DAILY 12/17/23 12/17/23 cholecalciferol (vitamin D3) 50 50 mcg PO DAILY 12/17/23 12/17/23 mcg (2,000 unit) tablet cyanocobalamin (vitamin B-12) 1,000 mcg PO HS 12/17/23 12/17/23 1,000 mcg tablet diclofenac sodium 1 % topical gel 4 g topical QID 12/17/23 12/17/23 ferrous sulfate 325 mg (65 mg 325 mg PO DAILY 12/17/23 12/17/23 iron) tablet glipizide 5 mg tablet, extended 5 mg PO DAILY 12/17/23 12/17/23 release 24 hr (Glucotrol XL) melatonin 3 mg tablet 4.5 mg PO HS 12/17/23 12/17/23 metoprolol succinate 25 mg 25 mg PO DAILY 12/17/23 12/17/23 tablet,extended release 24 hr (Toprol XL) rosuvastatin 5 mg tablet 5 mg PO 3XW 12/17/23 12/17/23 senna-docusate sodium tablet 1 tablet PO DAILY 12/17/23 12/17/23 sucralfate 1 gram tablet 1 g PO HS 12/17/23 12/17/23 tamoxifen 20 mg tablet 20 mg PO DAILY 12/17/23 12/17/23 Allergies Allergy/AdvReac Type Severity Reaction Status Date / Time monosodium glutamate AdvReac Diarrhea Verified 07/28/24 08:11 Review of Systems Review of Systems: All systems reviewed & are unremarkable except as noted in HPI and below Constitutional: Constitutional: Reports no additional constitutional complaints Eyes: Eyes: Reports no additional eye complaints ENT: Reports system reviewed and no additional complaints, except as documented Cardiovascular: Cardiovascular: Reports no additional cardiovascular complaints Respiratory: Respiratory: Reports no additional respiratory complaints Gastrointestinal: Gastrointestinal: Reports no additional gastrointestinal complaints Musculoskeletal: Musculoskeletal: Reports arthralgias (Left shoulder) Integumentary/Breasts: Skin/Breast: Reports system reviewed and no additional complaints, except as docu Neurologic: Reports system reviewed and no additional complaints, except as documented Psychiatric: Psychiatric: Reports no additional psychiatric complaints PMFSH Past Medical History Medical History Aortic regurgitation Atrial fibrillation CAD (coronary artery disease) Chronic anemia Chronic respiratory failure with hypoxia, on home O2 therapy Diabetes HLD (hyperlipidemia) HTN (hypertension) Pulmonary HTN Wrist fracture Surgical History Surgical History History of right heart catheterization For evaluation of
== END 2024-07-28 13:26 | disposition home or self-care (01) ==
PROVIDERS: Emergency Provider Family Medicine; PCP Internal Medicine
DX: S09.90XA Unspecified injury of head, initial encounter (principal); S01.81XA Laceration without foreign body of other part of head, initial encounter; I48.91 Unspecified atrial fibrillation; I25.10 Atherosclerotic heart disease of native coronary artery without angina pectoris; D64.9 Anemia, unspecified; E11.9 Type 2 diabetes mellitus without complications; E78.5 Hyperlipidemia, unspecified; I10 Essential (primary) hypertension; W01.0XXA Fall on same level from slipping, tripping and stumbling without subsequent striking against object, initial encounter
CPT/HCPCS: 12015; 70450; 70486; 71046; 71100; 72125; 73030; 96374; 96375; 99284; J2004; J2270; J2405